=== PATIENT | male | born 1965 | race Caucasian/White ===

== ENCOUNTER → 2020-08-21 | Day surgery (SDC) | payer BC ==
[2020-08-14 17:06] LABS: BASOPHILS % (AUTO) 0.5 % (0-1); EOSINOPHILS % (AUTO) 0 % (0-6); LYMPHOCYTES # (AUTO) 1.8 X10'3 (1.1-4.8); LYMPHOCYTES % (AUTO) 18.4 % (21-51); MEAN CORPUSCULAR HEMOGLOBIN 34.7 PG (27.0-31.0); MEAN CORPUSCULAR HGB CONC 34.4 g/dL (33.0-36.5); MEAN PLATELET VOLUME 7.6 FL (7.4-10.4); MONOCYTES # (AUTO) 1.3 X10'3 (0-0.9); MONOCYTES % (AUTO) 13.3 % (2-12); NEUTROPHILS # (AUTO) 6.6 X10'3 (1.8-7.7); NEUTROPHILS % (AUTO) 67.8 % (42-75); PRE OP HEMATOCRIT 27.9 % (42.0-52.0); PRE OP PLATELET COUNT 198 X10'3 (140-440); RED BLOOD COUNT 2.76 X10'6 (4.70-6.10); RED CELL DISTRIBUTION WIDTH 15.7 % (11.5-14.5)
[2020-08-14 17:09] LABS: PRE OP HEMOGLOBIN 9.6 g/dL (14.0-17.9)
[2020-08-14 17:14] LABS: ALBUMIN 3.5 G/DL (3.4-5.0); ALBUMIN/GLOBULIN RATIO 0.7 (1.1-1.5); ALKALINE PHOSPHATASE 63 IU/L (46-116); BLOOD UREA NITROGEN 25 MG/DL (7-18); BUN/CREATININE RATIO 17.5 (5.4-32.0); CALCIUM 8.9 MG/DL (8.5-10.1); CHLORIDE 89 MMOL/L (99-107); CREATININE 1.43 MG/DL (0.60-1.10); PRE OP ALT 47 U/L (30-65); PRE OP ANION GAP 16 (8-16); PRE OP AST 72 U/L (10-37); PRE OP BILIRUB, TOTAL 1.7 MG/DL (0.0-1.0); PRE OP GLUCOSE 115 MG/DL (70-104); PRE OP POTASSIUM 3.5 MMOL/L (3.4-5.1); TOTAL CARBON DIOXIDE 25.5 MMOL/L (24-32); TOTAL PROTEIN 8.6 G/DL (6.4-8.2); eGFR 51 ML/MIN
[2020-08-14 17:16] LABS: PRE OP SODIUM 130 MMOL/L (135-145)
[~2020-08-21] VITALS: Ht 182.9 cm; Wt 114.3 kg
[~2020-08-21] MED LIST: ASPI-1397 PO; CALC250T2 PO; DICL-212 PO; DISU250T7 PO; ESCI-8 PO; FOLI0.4T14 PO; FURO20TA4 PO; GLUCOSAMINE PO; LORA-269 PO; METHYLSULFONYLMETHANE PO; ROPIVAcaine 0.5% (5mg/ml) 30ml vial ONE; TRIA1TAB3 PO; VITA1TAB37 PO; acetaminophen 325mg tablet PO ONE; cefazolin/dext.iso 2gm/100ml IV ONE; celeCOXIB 100mg capsule PO ONE; cloNIDine hcl/PF 100mcg/ml inj ONE; epiNEPHrine 1 mg/ml inj ONE; famotidine 20mg tablet PO ONE; gabapentin 300mg capsule PO ONE; ketorolac trometh. 30mg/ml inj. ONE; metoclopramide 5 mg/ml inj IV ONE; oxyCODONE SR 10mg (sust. release) tab -2 tabs (20mg) PO ONE; ringers solution, lacted 1,000 ML IV SCH; tranexamic acid 1gm/0.7% sal. 100 ML IV ONE; vancomycin 1,000mg inj ONE; vancomycin 1,500 MG in NS 300ml IV soln IV ONE
== END | disposition home or self-care (01) ==
LOC: PAS 05:58
PROVIDERS: ATTEND Orthopaedic Surgery
DX: M17.11 Unilateral primary osteoarthritis, right knee (principal); Z53.8 Procedure and treatment not carried out for other reasons; R23.4 Changes in skin texture; F32.9 Major depressive disorder, single episode, unspecified; F41.9 Anxiety disorder, unspecified; M87.851 Other osteonecrosis, right femur; Z79.899 Other long term (current) drug therapy; Z79.84 Long term (current) use of oral hypoglycemic drugs; Z72.89 Other problems related to lifestyle
CPT/HCPCS: 36415; 80053; 85025; 86885; 86900; 86901; 87081; J0171; J0735; J1885; J3370; J7040; J2795; J7120